=== PATIENT | female | born 1960 | race Caucasian/White ===

== ENCOUNTER 2024-11-23 12:27 | Inpatient (IN) | payer MEDICARE ==
[~2024-11-23] VITALS: Ht 152.4 cm; Wt 59.0 kg
[2024-11-23] MEDS ORDERED: TYLENOL325 M2 PO (12:54)
[2024-11-23] MEDS ORDERED: GOOD SENSE ASP325 MG PO (13:00)
[2024-11-23] MEDS ORDERED: ATORVASTATIN CA80 M1 PO (13:01)
[2024-11-23] MEDS ORDERED: BISACODYL10 MG R (13:02)
[2024-11-23] MEDS ORDERED: CITALOPRAM10 MG PO (13:03)
[2024-11-23] MEDS ORDERED: CLOPIDOGREL75 MG PO (13:04)
[2024-11-23] MEDS ORDERED: DEPAKOTE SPRIN125 MG PO (13:05)
[2024-11-23] MEDS ORDERED: NATURE'S BLEND F1 MG PO (13:06)
[2024-11-23] MEDS ORDERED: GENTLELAX510 GM PO (13:08)
[2024-11-23] MEDS ORDERED: MAG-OXIDE200 MG PO (13:09)
[2024-11-23] MEDS ORDERED: MELATONIN3 MG PO (13:10)
[2024-11-23] MEDS ORDERED: KAPSPARGO SPRIN50 MG PO (13:12)
[2024-11-23] MEDS ORDERED: NITROSTAT0.3 M1 SL (13:15)
[2024-11-23] MEDS ORDERED: PANTOPRAZOLE SO40 MG PO (13:17)
[2024-11-23] MEDS ORDERED: POTASSIUM CHLO20 ME3 PO (13:18)
[2024-11-23] MEDS ORDERED: THIAMINE HCL100 MG PO (13:19)
[2024-11-23] MEDS ORDERED: LORazepam 1 MG TAB PO PRN (14:55)
[2024-11-23] MEDS ORDERED: hydrOXYzine hydrochloride 50 MG/ML VIAL IM PRN (15:00)
[2024-11-23] MEDS ORDERED: Water, Sterile 10 ML VIAL IM PRN (15:00)
[2024-11-23] MEDS ORDERED: ACETAMINOPHEN 325 MG TAB PO PRN (15:00)
[2024-11-23] MEDS ORDERED: MG-AL HYDROXIDE/SIMETICONE 30 ML UDC PO PRN (15:00)
[2024-11-23] MEDS ORDERED: Menthol/Zinc Oxide 4 GM THIN T PRN (15:10)
[2024-11-23 16:21] VITALS: BP 144/88
[2024-11-23] MEDS ORDERED: BISACODYL 10 MG SUPP R PRN (16:30)
[2024-11-23] MEDS ORDERED: Polyethylene Glycol 3350 17 GM PACKET PO PRN (16:30)
[2024-11-23 20:00] VITALS: BP 109/80
[2024-11-24 06:10] LABS: BASO # 0.1 10*3/uL (0.0-0.1); BASO % 0.7 % (0.0-1.0); EOS # 0.1 10*3/uL (0.0-0.4); EOS % 1.5 % (1.0-4.0); MEAN CELL VOLUME 91.1 fl (81.0-99.0); MEAN CORPUSCULAR HGB 29.0 pg (27.0-31.0); MEAN PLATELET VOLUME 11.9 fl (9.6-12.3); MONO # 0.5 10*3/uL (0.1-1.0); MONO % 7.2 % (3.0-9.0); NEUT # 3.5 10*3/uL (2.3-7.9); NEUT % 48.2 % (47.0-73.0); NUCLEATED RED BLOOD CELL 0.0 % (0.0-0.0); NUCLEATED RED BLOOD CELL 0.0 10*3/uL (0.0-0.0); PLATELET COUNT AUTOMATED 189 10*3/uL (130-400); RED CELL DISTRI WIDTH 13.3 % (0-14.5)
[2024-11-24 06:27] LABS: BUN 16 mg/dl (9-23); LDL CHOLESTEROL 63 mg/dL (9-159); SGPT/ALT 9 U/L (5-49); VALPROIC ACID (DEPAKENE) 7.1 ug/ml (50-100)
[2024-11-24 07:09] LABS: VITAMIN D, 25-HYDROXY 28.8 ng/mL (30-100)
[2024-11-24 08:00] VITALS: BP 155/100
[2024-11-24] MEDS ORDERED: Clopidogrel Hydrogen Sulfate 75 MG TAB PO SCH (09:00)
[2024-11-24] MEDS ORDERED: METOPROLOL SUCCINATE XR 50 MG TAB PO SCH (09:00)
[2024-11-24] MEDS ORDERED: FOLIC ACID 1 MG TAB PO SCH (09:00)
[2024-11-24] MEDS ORDERED: ATORVASTATIN CALCIUM 80 MG TAB PO SCH (09:00)
[2024-11-24] MEDS ORDERED: Thiamine 100 MG TAB PO SCH (09:00)
[2024-11-24] MEDS ORDERED: DIVALPROEX SODIUM 125 MG CAP PO SCH ×2 (09:00→21:00)
[2024-11-24] MEDS ORDERED: ASPIRIN 325 MG TAB PO SCH (09:00)
[2024-11-24] MEDS ORDERED: POTASSIUM CHLORIDE 20 MEQ TAB PO SCH (09:00)
[2024-11-24] MEDS ORDERED: CITALOPRAM 20 MG TAB PO SCH (09:00)
[2024-11-24 20:00] VITALS: BP 123/72
[2024-11-24] MEDS ORDERED: Mirtazapine 15 MG TAB PO SCH (21:00)
[2024-11-25 08:00] VITALS: BP 130/79
[2024-11-25] MEDS ORDERED: Cholecalciferol 2,000 UNIT TABLET (50 MCG) PO SCH (09:00)
[2024-11-25 20:00] VITALS: BP 127/50
[2024-11-25 22:22] LABS: BILIRUBIN Negative (Negative); BLOOD Negative (Negative); CLARITY Clear (Clear); COLOR Yellow (Yellow); KETONE Trace (Negative); LEUKO ESTERASE 1+ (Negative); NITRITE Negative (Negative); PH 5.5 (4.5-8.0); SPECIFIC GRAVITY 1.020 (1.001-1.030); UROBILINOGEN 1.0 E.U./dl (0.0-1.0)
[2024-11-25 22:28] LABS: EPITHELIAL CELLS 21-30; RBC 0-2 rbc/hpf (0-2)
[2024-11-25 22:29] LABS: BACTERIA 1+
[2024-11-26 08:00] VITALS: BP 159/94
[2024-11-26] MEDS ORDERED: CYANOCOBALAMIN 1,000 MCG/ML VIAL IM SCH (10:00)
[2024-11-26] MEDS ORDERED: CEFDINIR 300 MG CAP PO SCH (21:00)
[2024-11-27 08:00] VITALS: BP 160/90
[2024-11-27 20:00] VITALS: BP 151/94
[2024-11-28 09:02] VITALS: BP 158/67
[2024-11-28 20:00] VITALS: BP 156/96
[2024-11-29 06:05] LABS: BUN 23 mg/dl (9-23); SGPT/ALT 11 U/L (5-49); VALPROIC ACID (DEPAKENE) 68.9 ug/ml (50-100)
[2024-11-29 06:11] LABS: BASO # 0.1 10*3/uL (0.0-0.1); BASO % 0.8 % (0.0-1.0); EOS # 0.1 10*3/uL (0.0-0.4); EOS % 2.1 % (1.0-4.0); MEAN CELL VOLUME 92.2 fl (81.0-99.0); MEAN CORPUSCULAR HGB 29.0 pg (27.0-31.0); MEAN PLATELET VOLUME 12.1 fl (9.6-12.3); MONO # 0.5 10*3/uL (0.1-1.0); MONO % 8.3 % (3.0-9.0); NEUT # 3.3 10*3/uL (2.3-7.9); NEUT % 53.2 % (47.0-73.0); NUCLEATED RED BLOOD CELL 0.0 % (0.0-0.0); NUCLEATED RED BLOOD CELL 0.0 10*3/uL (0.0-0.0); PLATELET COUNT AUTOMATED 187 10*3/uL (130-400); RED CELL DISTRI WIDTH 12.9 % (0-14.5)
[2024-11-29 07:45] VITALS: BP 152/60
[2024-11-29] MEDS ORDERED: B121000 MCG/1 IM (09:41)
[2024-11-29] MEDS ORDERED: HYDROXYZINE PAM25 M1 PO (09:41)
[2024-11-29] MEDS ORDERED: MIRTAZAPINE15 M2 PO (09:41)
[2024-11-29] MEDS ORDERED: DIVALPROEX SOD125 M1 PO (09:41)
== END 2024-11-29 13:06 | DRG 883 ==
LOC: 3N
PROVIDERS: Counselor Professional; ADMIT Psychiatry & Neurology Psychiatry; ATTEND Psychiatry & Neurology Psychiatry
PROC: GZHZZZZ Group Psychotherapy (ICD-10-PCS; principal; 2024-11-24)
PROC: GZ56ZZZ Individual Psychotherapy, Supportive (ICD-10-PCS; 2024-11-24)
DX: F63.81 Intermittent explosive disorder (principal); F02.83 Dementia in other diseases classified elsewhere, unspecified severity, with mood disturbance; F01.53 Vascular dementia, unspecified severity, with mood disturbance; F02.84 Dementia in other diseases classified elsewhere, unspecified severity, with anxiety; F01.A4 Vascular dementia, mild, with anxiety; F33.9 Major depressive disorder, recurrent, unspecified; I10 Essential (primary) hypertension; K21.9 Gastro-esophageal reflux disease without esophagitis; R00.1 Bradycardia, unspecified; N39.41 Urge incontinence; I65.22 Occlusion and stenosis of left carotid artery; I77.1 Stricture of artery; E87.8 Other disorders of electrolyte and fluid balance, not elsewhere classified; E55.9 Vitamin D deficiency, unspecified; F10.10 Alcohol abuse, uncomplicated; G30.9 Alzheimer's disease, unspecified; E78.2 Mixed hyperlipidemia; F17.210 Nicotine dependence, cigarettes, uncomplicated; Z71.6 Tobacco abuse counseling; Z86.73 Personal history of transient ischemic attack (TIA), and cerebral infarction without residual deficits; Z79.82 Long term (current) use of aspirin; Z79.899 Other long term (current) drug therapy; Z79.01 Long term (current) use of anticoagulants; Z79.2 Long term (current) use of antibiotics; Y90.0 Blood alcohol level of less than 20 mg/100 ml